=== PATIENT | male | born 1995 | race Caucasian/White ===

== ENCOUNTER 2017-07-05 17:27 | Emergency (ER) | payer OTHER ==
[2017-07-05 17:35] VITALS: TEMP 98.1
--- NOTE | 2017-07-05 17:54 | EDPHY ---
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 The patient reports associated photophobia and nausea. The patient does report a history of similar headaches in the past. He has had headaches of this intensity. He reports his last episode was approximately a year and half ago. The patient has not been evaluated by a neurologist. He denies any history of fall or trauma. The patient did feel as if he had a flu-like illness approximately 2 weeks ago. He had recovered from that uneventfully. He felt fine earlier in the day. The patient denies any acute numbness or weakness. The patient denies any additional complaints. He currently rates his headache as a 10/10. REVIEW OF SYSTEMS: A comprehensive 10 point review of systems is otherwise negative aside from elements mentioned in the history of present illness. Source: Patient Exam Limitations: No limitations - Personal History Current Tetanus/Diphtheria Vaccine: Yes Current Tetanus Diphtheria and Acellular Pertussis (TDAP): Yes Tetanus Vaccine Date: < 10 years - Medical/Surgical History Hx Asthma: No Hx Chronic Respiratory Disease: No Hx Diabetes: No Hx Cardiac Disease: No Hx Renal Disease: No Hx Cirrhosis: No Hx Alcoholism: No Hx HIV/AIDS: No Hx Splenectomy or Spleen Trauma: No Other PMH: ortho - Social History Smoking Status: Never smoked - Physical Exam Exam: General Appearance: Alert, mild discomfort secondary to pain Eyes: Pupils equal and round no pallor or injection ENT, Mouth: Mucous membranes moist Respiratory: There are no retractions, lungs are clear to auscultation Cardiovascular: Regular rate and rhythm Gastrointestinal: Abdomen is soft and nontender, no masses, bowel sounds normal Neurological: A&O, normal motor function, normal sensory exam, normal cranial nerves Skin: Warm and dry, no rashes Musculoskeletal: Neck is supple nontender, specifically no meningeal symptoms Extremities: symmetrical, full range of motion Psychiatric: Patient is oriented X 3, there is no agitation Constitutional: Initial Vital Signs Temperature (C) 36.7 C 07/05/17 17:31 Heart Rate 60 07/05/17 17:31 Respiratory Rate 19 07/05/17 17:31 Blood Pressure 144/76 H 07/05/17 17:31 O2 Sat (%) 99 02/11/18 17:31 O2 Delivery Mode Room Air Allergies/Adverse Reactions: No Known Allergies Allergy (Verified 07/05/17 17:31) Home Medications: Medication Instructions Recorded NO HOME MEDICATIONS 10/27/10 Medical Decision Making - Diagnostics Imaging Results: Imaging Impressions Head CTA 07/05/17 00:00 Impression: Negative CT angiogram of the brain. Results called and discussed with Dr. Mat Peterson at 07/05/2017 19:12. Head CT 07/05/17 18:01 Impression: Bilateral maxillary sinusitis. No evidence for acute intracranial abnormality. Results called and discussed with Mat Peterson MD on July 05, 2017 at 1911 hours. ED Course/Re-evaluation: The patient presents to the ED for evaluation of acute bifrontal headache with associated nausea and phobia. The patient was afebrile and neurologically intact upon arrival. He had no clinical evidence of meningitis. The patient was taken for a CT/CTA of the brain which demonstrates no evidence of intracranial hemorrhage or vascular abnormality. The patient was noted to have bilateral maxillary sinus disease. Patient had an IV established. He received IV Ativan, morphine and Zofran. The patient received a L of normal saline. I re-evaluated the patient at 8:30 p.m. and he reports his headache is resolved. He continues to have no meningeal symptoms and is neurologically intact. The patient presents to the ED with what appears to be a migrainous or tension-type headache. The patient does have evidence of bilateral maxillary sinus disease likely consistent with his recent upper respiratory infection. I do not feel that this is an explanation for his acute headache today. At this point time I do feel the patient can be discharged home. He will be given our on-call Neurology Department to follow up with. He is discharged home with customary aftercare instructions and return precautions. 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 , meningitis, subarachnoid hemorrhage, migraine headache, frontal sinusitis - Data Points Laboratory Results: Laboratory Results 07/05/17 18:00 07/05/17 18:00 07/05/17 07/05/17 18:00 18:00 WBC 9.72 10^3/uL H 10^3/uL (3.80-9.50) RBC 4.37 10^6/uL L 10^6/uL (4.40-6.38) Hgb 14.3 g/dL g/dL (13.7-17.5) Hct 41.5 % % (40.0-51.0) MCV 95.0 fL fL (81.5-99.8) MCH 32.7 pg pg (27.9-34.1) MCHC 34.5 g/dL g/dL (32.4-36.7) RDW 11.2 % L % (11.5-15.2) Plt Count 286 10^3/uL 10^3/uL (150-400) MPV 9.8 fL fL (8.7-11.7) Neut % (Auto) 70.6 % % (39.3-74.2) Lymph % (Auto) 20.6 % % (15.0-45.0) [place] % (Auto) 7.6 % % (4.5-13.0) Eos % (Auto) 0.8 % % (0.6-7.6) Baso % (Auto) 0.2 % L % (0.3-1.7) Nucleat RBC Rel Count 0.0 % % (0.0-0.2) Absolute Neuts (auto) 6.86 10^3/uL H 10^3/uL (1.70-6.50) Absolute Lymphs (auto) 2.00 10^3/uL 10^3/uL (1.00-3.00) Absolute Monos (auto) 0.74 10^3/uL 10^3/uL (0.30-0.80) Absolute Eos (auto) 0.08 10^3/uL 10^3/uL (0.03-0.40) Absolute Basos (auto) 0.02 10^3/uL 10^3/uL (0.02-0.10) Absolute Nucleated RBC 0.00 10^3/uL 10^3/uL (0-0.01) Immature Gran % 0.2 % % (0.0-1.1) Immature Gran # 0.02 10^3/uL 10^3/uL (0.00-0.10) Sodium 145 mEq/L mEq/L (135-145) Potassium 4.2 mEq/L mEq/L (3.5-5.2) Chloride 103 mEq/L mEq/L (97-110) Carbon Dioxide 27 mEq/l mEq/l (22-31) Anion Gap 15 mEq/L mEq/L (8-16) BUN 11 mg/dL mg/dL (7-23) Creatinine 0.9 mg/dL mg/dL (0.7-1.3) Estimated GFR > 60 Glucose 78 mg/dL mg/dL (70-100) Calcium 9.9 mg/dL mg/dL (8.5-10.4) Medications Given: Discontinued Medications Sodium Chloride (Ns) 500 mls @ 1,000 mls/hr IV EDNOW ONE PRN Reason: Protocol Stop: 07/05/17 18:29 Last Admin: 07/05/17 18:08 Dose: 500 mls Lorazepam (Ativan Injection) 1 mg IVP EDNOW ONE Stop: 07/05/17 18:01 Last Admin: 07/05/17 18:08 Dose: 1 mg Morphine Sulfate (Morphine) 4 mg IVP EDNOW ONE Stop: 07/05/17 18:01 Last Admin: 07/05/17 18:09 Dose: 4 mg Ondansetron HCl (Zofran) 4 mg IVP EDNOW ONE Stop: 07/05/17 18:01 Last Admin: 07/05/17 18:08 Dose: 4 mg Departure - Departure Disposition: Home, Routine, Self-Care Clinical Impression: Acute headache Qualifiers: Headache type: unspecified Intractability: not intractable Qualified Code(s): R51 - Headache Condition: Good Instructions: Acute Headache (ED) Additional Instructions: 1. Take Ibuprofen or Motrin 600 mg by mouth three times a day. 2. Please schedule a follow-up appointment with our neurologist, Dr. Mariano , to discuss your history of headaches. 3. Please return to the ED for recurrent severe headache, vomiting, numbness, weakness or other concerns. Referrals: Mani Mariano MD [Medical Doctor] - As per Instructions
[2017-07-05] MEDS ORDERED: ONDANSETRON 4 MG/2 ML VIAL IVP ONE (18:00)
[2017-07-05] MEDS ORDERED: LORazepam 2 MG/ML INJ IVP ONE (18:00)
[2017-07-05] MEDS ORDERED: NS 500 ML IV ONE (18:00)
[2017-07-05 18:06] LABS: PLATELET COUNT 286 10^3/uL (150-400)
[2017-07-05] MEDS ORDERED: IOPAMIDOL (ISOVUE 370) 100 ML BTL IV ONE (18:23)
[2017-07-05 20:00] VITALS: RESP 18; O2SAT 95
[2017-07-05 20:47] VITALS: BP 114/59; PULSE 65
== END 2017-07-05 20:46 | disposition home or self-care (01) ==
DX: R51 Headache (principal); E86.9 Volume depletion, unspecified
CPT/HCPCS: 96374; J2060; J2270; J2405; Q9967